=== PATIENT | female | born 2000 | race Caucasian/White ===

== ENCOUNTER 2018-04-19 12:27 | Emergency (ER) | payer OTHER ==
[~2018-04-19] VITALS: Ht 177.8 cm; Wt 109.2 kg
[~2018-04-19 12:27] MED LIST: CETI10TA24 PO; FLUT1DIS IH; LEVA15HF4 INH; MONT10TA6 PO; NAPR-685 PO; PRED20TA PO; TOPI25TA52 PO
[2018-04-19 12:34] VITALS: BP 115/61
== END 2018-04-19 13:32 | disposition home or self-care (01) ==
LOC: ED 13:00
DX: L23.5 Allergic contact dermatitis due to other chemical products (principal); L24.0 Irritant contact dermatitis due to detergents
CPT/HCPCS: 99283